=== PATIENT | male | born 1955 | race Caucasian/White ===

== ENCOUNTER 2023-12-05 08:30 | Inpatient (IN) | payer MEDICARE, MEDICAID ==
[~2023-12-05] VITALS: Ht 180.3 cm; Wt 92.5 kg
[~2023-12-05 08:30] MED LIST: LEVO-65 MT
[2023-12-05] MEDS ORDERED: LASIX (08:32)
[2023-12-05] MEDS ORDERED: ATORVASTATIN (08:32)
[2023-12-05] MEDS ORDERED: ACETAMINOPHEN (08:32)
[2023-12-05] MEDS ORDERED: COLACE (08:32)
[2023-12-05] MEDS ORDERED: LISINOPRIL (08:32)
[2023-12-05 09:52] LABS: BASOPHILS % 0.9 % (0.0-2.0); EOSINOPHILS % 3.7 % (0.0-5.0); HEMATOCRIT. 41.7 % (42.0-52.0); HEMOGLOBIN. 13.1 g/dL (14.0-18.0); LYMPHOCYTES % 16.7 % (20.0-50.0); MEAN CORPUSCULAR HEMOGLOBIN 29.5 pg (28.0-32.0); MEAN CORPUSCULAR HGB CONC 31.5 g/dL (31.0-37.0); MEAN CORPUSCULAR VOLUME 93.5 fL (80.0-94.0); MEAN PLATELET VOLUME 9.6 fl (7.4-10.4); MONOCYTES % 7.7 % (2.0-8.0); PLATELET 201 x1000/uL (130-400); RED BLOOD CELL COUNT 4.46 mill/uL (4.7-6.1); RED CELL DISTRIBUTION WIDTH 17.1 % (11.6-14.6); WHITE BLOOD COUNT 6.6 x1000/uL (4.5-11.0)
[2023-12-05 10:16] LABS: INR 1.1; PROTHROMBIN TIME 11.9 sec (9.6-11.0)
[2023-12-05 11:07] LABS: ALANINE AMINOTRANSFERASE 66 IU/L (10-49); ALBUMIN 4.3 g/dL (3.2-4.8); ASPARTATE AMINOTRANSFERASE 46 IU/L (<34); BILIRUBIN TOTAL 0.8 mg/dL (0.1-1.0); CALCIUM 9.2 mg/dL (8.7-10.4); CARBON DIOXIDE 23 mEq/L (21-32); CHLORIDE 109 mEq/L (98-107); CREATININE 0.8 mg/dL (0.6-1.3); GLUCOSE 90 mg/dL (70-105); POTASSIUM 4.2 mEq/L (3.5-5.1); PROTEIN TOTAL 6.8 g/dL (6.0-8.3); SODIUM 141 mEq/L (136-145); TROPONIN I HIGH SENSITIVITY 27 ng/L (3.0-53); UREA NITROGEN BLOOD 16 mg/dL (9-23)
[2023-12-05 12:16] LABS: CLARITY URINE CLEAR (CLEAR); COLOR URINE DARK YELLOW (YELLOW); GLUCOSE URINE NEGATIVE (NEGATIVE); KETONES URINE NEGATIVE (NEGATIVE); LEUKOCYTE ESTERASE URINE NEGATIVE (NEGATIVE); NITRITE URINE NEGATIVE (NEGATIVE); OCCULT BLOOD URINE NEGATIVE (NEGATIVE); PH URINE 5.5 (4.5-8.0); PROTEIN URINE 2+ (NEGATIVE); SPECIFIC GRAVITY URINE 1.024 (1.005-1.030)
[2023-12-05] MEDS ORDERED: DEXT 5%/0.9% NACL 1,000 ML IV ONE (12:30)
[2023-12-05] MEDS ORDERED: MORPHINE SULFATE 4 MG/ML CPJ (NOT FOR IM USE) IV ONE (12:30)
[2023-12-05 12:44] LABS: SQUAMOUS EPITHELIAL CELL URINE 1+ /lpf (RARE/1+)
[2023-12-05 12:45] LABS: RBC URINE NONE SEEN /hpf (0-2); WBC URINE 0-2 /hpf (0-2)
[2023-12-05 12:46] LABS: BACTERIA URINE TRACE
[2023-12-05 13:18] LABS: TROPONIN I HIGH SENSITIVITY 28 ng/L (3.0-53)
[2023-12-05 16:00] VITALS: BP 138/93; PULSE 74; RESP 18; TEMP 97.8
[2023-12-05 20:00] VITALS: BP 132/101; PULSE 83; RESP 20; TEMP 97.7
[2023-12-05] MEDS: FAMOTIDINE 20MG TABLET PO SCH (21:00)
[2023-12-05] MEDS ORDERED: ENOXAPARIN 40MG/0.4ML SYR SUBCUT SCH (21:00)
[2023-12-05] MEDS: KETOROLAC 15MG/ML VIAL IV PRN (22:12)
[2023-12-05] MEDS ORDERED: ZOLPIDEM TARTRATE 5MG TABLET PO PRN (22:15)
[2023-12-06] VITALS: BP 129/75; PULSE 66; RESP 20; TEMP 98.1
[2023-12-06 04:00] VITALS: BP 126/85; PULSE 75; RESP 20; TEMP 97.5
[2023-12-06 08:00] VITALS: BP 117/79; PULSE 77; RESP 18; TEMP 97.2
[2023-12-06] MEDS ORDERED: FUROSEMIDE 40MG TABLET PO SCH (09:00)
[2023-12-06] MEDS ORDERED: CARVEDILOL 6.25 MG TABLET PO SCH (09:00)
[2023-12-06] MEDS: FAMOTIDINE 20MG TABLET PO SCH (09:09)
[2023-12-06] MEDS: KETOROLAC 15MG/ML VIAL IV PRN (10:45)
[2023-12-06 12:00] VITALS: BP 128/91; PULSE 68; RESP 16; TEMP 98
[2023-12-06] MEDS ORDERED: LOSARTAN 25 MG TABLET PO SCH (13:00)
[2023-12-06 15:16] VITALS: BP 128/91; PULSE 68; TEMP 98; O2SAT 98
== END 2023-12-06 15:30 | disposition home or self-care (01) | DRG 438 ==
LOC: ER 08:30 → 7WST 14:55 → EDBEDREQ 15:02 → EDBEDREQSVC 15:04
PROVIDERS: ADMIT Internal Medicine; ATTEND Internal Medicine
DX: K85.90 Acute pancreatitis without necrosis or infection, unspecified (principal); I50.23 Acute on chronic systolic (congestive) heart failure; E11.9 Type 2 diabetes mellitus without complications; E78.00 Pure hypercholesterolemia, unspecified; I11.0 Hypertensive heart disease with heart failure; Z95.810 Presence of automatic (implantable) cardiac defibrillator; Z79.899 Other long term (current) drug therapy
CPT/HCPCS: 36415; 71045; 74176; 76705; 80053; 81003; 84484; 85025; 93005; 99285; J1650; J1885; J2270; J7042

== ENCOUNTER 2024-02-04 09:19 | Emergency (ER) | payer MEDICARE, MEDICAID ==
[~2024-02-04] VITALS: Ht 177.8 cm; Wt 82.0 kg
[~2024-02-04 09:19] MED LIST changes: +ACETAMINOPHEN; +ATORVASTATIN; +COLACE; +LASIX; +LISINOPRIL
[2024-02-04 09:22] VITALS: TEMP 98.9; O2SAT 100
[2024-02-04] MEDS: FUROSEMIDE 40MG/4ML VIAL IV ONE (10:08)
[2024-02-04 10:20] LABS: BASOPHILS % 0.9 % (0.0-2.0); EOSINOPHILS % 3.5 % (0.0-5.0); HEMATOCRIT. 41.2 % (42.0-52.0); HEMOGLOBIN. 13.2 g/dL (14.0-18.0); LYMPHOCYTES % 12.4 % (20.0-50.0); MEAN CORPUSCULAR HEMOGLOBIN 28.2 pg (28.0-32.0); MEAN CORPUSCULAR HGB CONC 32.1 g/dL (31.0-37.0); MEAN CORPUSCULAR VOLUME 87.7 fL (80.0-94.0); MEAN PLATELET VOLUME 9.8 fl (7.4-10.4); MONOCYTES % 12.6 % (2.0-8.0); NEUTROPHILS % 70.6 % (40.0-76.0); PLATELET 215 x1000/uL (130-400); RED CELL DISTRIBUTION WIDTH 16.8 % (11.6-14.6); WHITE BLOOD COUNT 7.7 x1000/uL (4.5-11.0)
[2024-02-04 10:28] VITALS: RESP 20
[2024-02-04 10:58] LABS: ALANINE AMINOTRANSFERASE 19 IU/L (10-49); ALBUMIN 4.2 g/dL (3.2-4.8); ASPARTATE AMINOTRANSFERASE 44 IU/L (<34); BILIRUBIN TOTAL 0.7 mg/dL (0.1-1.0); CALCIUM 8.6 mg/dL (8.7-10.4); CARBON DIOXIDE 21 mEq/L (21-32); CHLORIDE 110 mEq/L (98-107); CREATININE 1.1 mg/dL (0.6-1.3); GLUCOSE 91 mg/dL (70-105); POTASSIUM 4.9 mEq/L (3.5-5.1); PROTEIN TOTAL 6.7 g/dL (6.0-8.3); SODIUM 140 mEq/L (136-145); TROPONIN I HIGH SENSITIVITY 43 ng/L (3.0-53); UREA NITROGEN BLOOD 26 mg/dL (9-23)
[2024-02-04 11:00] VITALS: BP 156/93; PULSE 78; RESP 24
[2024-02-04] MEDS ORDERED: FURO-151 MT (11:16)
== END 2024-02-04 11:27 | disposition left against medical advice (07) ==
LOC: ER 09:19
DX: I11.0 Hypertensive heart disease with heart failure (principal); I50.9 Heart failure, unspecified; E78.00 Pure hypercholesterolemia, unspecified
CPT/HCPCS: 99291; 96374; 80053; 83880; 85025; 84484; 36415; 71045; 94640; 93005; J1940; 94660

== ENCOUNTER 2024-02-23 03:23 | Emergency (ER) | payer MEDICARE, MEDICAID ==
[~2024-02-23] VITALS: Ht 182.9 cm; Wt 90.0 kg
[~2024-02-23 03:23] MED LIST changes: +FURO-151 MT
[2024-02-23 03:45] VITALS: O2SAT 100
[2024-02-23 04:40] LABS: BASOPHILS % 1.2 % (0.0-2.0); EOSINOPHILS % 0.6 % (0.0-5.0); HEMATOCRIT. 41.3 % (42.0-52.0); HEMOGLOBIN. 13.5 g/dL (14.0-18.0); LYMPHOCYTES % 13.6 % (20.0-50.0); MEAN CORPUSCULAR HEMOGLOBIN 28.2 pg (28.0-32.0); MEAN CORPUSCULAR HGB CONC 32.6 g/dL (31.0-37.0); MEAN CORPUSCULAR VOLUME 86.6 fL (80.0-94.0); MEAN PLATELET VOLUME 9.3 fl (7.4-10.4); MONOCYTES % 14.5 % (2.0-8.0); NEUTROPHILS % 70.1 % (40.0-76.0); PLATELET 311 x1000/uL (130-400); RED BLOOD CELL COUNT 4.77 mill/uL (4.7-6.1); RED CELL DISTRIBUTION WIDTH 17.3 % (11.6-14.6); WHITE BLOOD COUNT 8.1 x1000/uL (4.5-11.0)
[2024-02-23 05:01] LABS: ALANINE AMINOTRANSFERASE 255 IU/L (10-49); ASPARTATE AMINOTRANSFERASE 426 IU/L (<34); BILIRUBIN TOTAL 1.4 mg/dL (0.1-1.0); CALCIUM 9.9 mg/dL (8.7-10.4); CARBON DIOXIDE 20 mEq/L (21-32); CHLORIDE 102 mEq/L (98-107); GLUCOSE 84 mg/dL (70-105); POTASSIUM 4.7 mEq/L (3.5-5.1); SODIUM 135 mEq/L (136-145); UREA NITROGEN BLOOD 44 mg/dL (9-23)
[2024-02-23 05:16] LABS: CREATININE 1.8 mg/dL (0.6-1.3); PROTEIN TOTAL 8.7 g/dL (6.0-8.3)
[2024-02-23 06:07] VITALS: BP 128/98; PULSE 72; RESP 17; TEMP 97.9
== END 2024-02-23 11:24 | disposition left against medical advice (07) ==
LOC: ER 03:29
DX: R10.9 Unspecified abdominal pain (principal); Z53.21 Procedure and treatment not carried out due to patient leaving prior to being seen by health care provider
CPT/HCPCS: 36415; 80053; 85025; 99281

== ENCOUNTER 2024-03-03 15:31 | Emergency (ER) | payer MEDICARE, MEDICAID ==
[~2024-03-03] VITALS: Ht 185.4 cm; Wt 91.0 kg
[2024-03-03 15:35] VITALS: TEMP 97.5; O2SAT 99
[2024-03-03 16:12] LABS: EOSINOPHILS % 1.5 % (0.0-5.0); HEMATOCRIT. 40.9 % (42.0-52.0); HEMOGLOBIN. 13.3 g/dL (14.0-18.0); LYMPHOCYTES % 14.2 % (20.0-50.0); MEAN CORPUSCULAR HEMOGLOBIN 27.9 pg (28.0-32.0); MEAN CORPUSCULAR HGB CONC 32.6 g/dL (31.0-37.0); MEAN CORPUSCULAR VOLUME 85.8 fL (80.0-94.0); MEAN PLATELET VOLUME 8.8 fl (7.4-10.4); MONOCYTES % 7.9 % (2.0-8.0); NEUTROPHILS % 75.4 % (40.0-76.0); PLATELET 307 x1000/uL (130-400); RED BLOOD CELL COUNT 4.77 mill/uL (4.7-6.1); RED CELL DISTRIBUTION WIDTH 17.6 % (11.6-14.6); WHITE BLOOD COUNT 7.3 x1000/uL (4.5-11.0)
[2024-03-03 16:24] LABS: INR 1.2; PROTHROMBIN TIME 13.3 sec (9.6-11.0)
[2024-03-03 16:35] LABS: ALANINE AMINOTRANSFERASE 72 IU/L (10-49); ALBUMIN 4.4 g/dL (3.2-4.8); ASPARTATE AMINOTRANSFERASE 46 IU/L (<34); BILIRUBIN TOTAL 1.1 mg/dL (0.1-1.0); CALCIUM 9.1 mg/dL (8.7-10.4); CARBON DIOXIDE 23 mEq/L (21-32); CHLORIDE 108 mEq/L (98-107); CREATININE 1.4 mg/dL (0.6-1.3); GLUCOSE 95 mg/dL (70-105); POTASSIUM 4.6 mEq/L (3.5-5.1); SODIUM 137 mEq/L (136-145); TROPONIN I HIGH SENSITIVITY 34 ng/L (3.0-53); UREA NITROGEN BLOOD 32 mg/dL (9-23)
[2024-03-03] MEDS: FUROSEMIDE 40MG/4ML VIAL IVP ONE (16:52)
[2024-03-03 19:49] VITALS: BP 106/70; PULSE 68; RESP 14
== END 2024-03-03 21:00 | disposition home or self-care (01) ==
LOC: ER 15:31
DX: I11.0 Hypertensive heart disease with heart failure (principal); I50.9 Heart failure, unspecified; R18.8 Other ascites; E78.00 Pure hypercholesterolemia, unspecified; N17.9 Acute kidney failure, unspecified
CPT/HCPCS: 99285; 74176; 96374; 71045; 80053; 83880; 83605; 83690; 85025; 85610; 85730; 84484; 36415; 93005; J1940

== ENCOUNTER 2024-05-01 18:00 | Inpatient (IN) | payer OTHER, MEDICAID ==
[~2024-05-01] VITALS: Ht 182.9 cm; Wt 87.1 kg
[~2024-05-01 18:00] MED LIST changes: +CARV6.2548 MT; -FURO-151 MT; +FURO80TA87 MT; -LEVO-65 MT; -LISINOPRIL; +LOSA25TA26 MT; +POTA-205 MT
[2024-05-01] MEDS: MORPHINE SULFATE 4 MG/ML INJ (FOR IV/IM USE) IV STA (19:01)
[2024-05-01] MEDS: ONDANSETRON HCL 4MG/2ML INJ IV STA (19:02)
[2024-05-01] MEDS: SODIUM CHLORIDE 0.9% 1,000 ML IV ONE (19:02)
[2024-05-01 19:22] LABS: HEMATOCRIT. 37.9 % (42.0-52.0); HEMOGLOBIN. 12.3 g/dL (14.0-18.0); MEAN CORPUSCULAR HEMOGLOBIN 27.4 pg (28.0-32.0); MEAN CORPUSCULAR HGB CONC 32.4 g/dL (31.0-37.0); MEAN CORPUSCULAR VOLUME 84.5 fL (80.0-94.0); MEAN PLATELET VOLUME 9.7 fl (7.4-10.4); PLATELET 246 x1000/uL (130-400); RED BLOOD CELL COUNT 4.48 mill/uL (4.7-6.1); RED CELL DISTRIBUTION WIDTH 21.2 % (11.6-14.6); WHITE BLOOD COUNT 21.4 x1000/uL (4.5-11.0)
[2024-05-01 19:27] LABS: DIFFERENTIAL COMMENT 1
[2024-05-01 19:34] LABS: CHLORIDE 100 mEq/L (98-107); SODIUM 133 mEq/L (136-145)
[2024-05-01 19:35] LABS: CARBON DIOXIDE 24 mEq/L (21-32)
[2024-05-01 19:36] LABS: CALCIUM 10.1 mg/dL (8.7-10.4)
[2024-05-01 19:41] LABS: CREATININE 1.6 mg/dL (0.6-1.3); GLUCOSE 103 mg/dL (70-105); UREA NITROGEN BLOOD 43 mg/dL (9-23)
[2024-05-01 19:42] LABS: ALANINE AMINOTRANSFERASE 42 IU/L (10-49)
[2024-05-01 19:43] LABS: ALBUMIN 4.5 g/dL (3.2-4.8); ASPARTATE AMINOTRANSFERASE 30 IU/L (<34); BILIRUBIN DIRECT 1.1 mg/dL (<=3.0); BILIRUBIN TOTAL 1.7 mg/dL (0.1-1.0)
[2024-05-01 22:22] LABS: OVALOCYTES 1+; PLATELET ESTIMATE NORMAL; TARGET CELLS 1+; TEAR DROP CELLS 1+
[2024-05-01 22:23] LABS: GIANT PLATELETS FEW
[2024-05-01] MEDS: AZITHROMYCIN 500MG/250ML 250 ML IV SCH (22:30)
[2024-05-01] MEDS: CEFTRIAXONE 1GM/50ML 50 ML IV NR (22:39)
[2024-05-02 01:33] VITALS: BP 112/72; PULSE 81; RESP 20; TEMP 98.8
[2024-05-02] MEDS: MORPHINE SULFATE 2 MG/ML CPJ (NOT FOR IM USE) IV PRN (02:19)
[2024-05-02 04:00] VITALS: BP 122/71; PULSE 101; RESP 16; TEMP 97.5
[2024-05-02] MEDS: PIPERACILLIN/TAZO 3.375G/50ML 50 ML IV SCH (07:15)
[2024-05-02] MEDS: DEXT 5%/0.45% NACL 1000ML 1,000 ML IV SCH (07:15)
[2024-05-02 08:00] VITALS: BP 104/57; PULSE 57; RESP 16; TEMP 97.3
[2024-05-02 08:10] LABS: HEMATOCRIT. 37.9 % (42.0-52.0); HEMOGLOBIN. 12.2 g/dL (14.0-18.0); MEAN CORPUSCULAR HEMOGLOBIN 27.1 pg (28.0-32.0); MEAN CORPUSCULAR HGB CONC 32.1 g/dL (31.0-37.0); MEAN CORPUSCULAR VOLUME 84.4 fL (80.0-94.0); MEAN PLATELET VOLUME 9.6 fl (7.4-10.4); PLATELET 241 x1000/uL (130-400); RED BLOOD CELL COUNT 4.49 mill/uL (4.7-6.1); WHITE BLOOD COUNT 18.7 x1000/uL (4.5-11.0)
[2024-05-02 08:17] LABS: CALCIUM 10.1 mg/dL (8.7-10.4); CHLORIDE 101 mEq/L (98-107); POTASSIUM 3.7 mEq/L (3.5-5.1); SODIUM 134 mEq/L (136-145)
[2024-05-02 08:18] LABS: CARBON DIOXIDE 23 mEq/L (21-32)
[2024-05-02 08:20] LABS: DIFFERENTIAL COMMENT 1
[2024-05-02 08:23] LABS: CREATININE 1.1 mg/dL (0.6-1.3); GLUCOSE 90 mg/dL (70-105); TRIGLYCERIDE 126 mg/dL (0-150); UREA NITROGEN BLOOD 37 mg/dL (9-23)
[2024-05-02 08:24] LABS: CHOLESTEROL 128 mg/dL (<200); LDL CHOLESTEROL 60 mg/dL (5-100)
[2024-05-02 08:25] LABS: HDL CHOLESTEROL 32 mg/dL (>55)
[2024-05-02] MEDS: PANTOPRAZOLE SODIUM 40 MG/VIAL IV SCH (08:27)
[2024-05-02] MEDS: HEPARIN 5000 UNITS/ML VIAL SUBCUT SCH (08:28)
[2024-05-02 08:48] LABS: HEPATITIS B SURFACE ANTIGEN NEGATIVE (Negative)
[2024-05-02 09:09] LABS: HEPATITIS C AB NON REACTIVE (Neg) (Negative)
[2024-05-02] MEDS ORDERED: NALOXONE HCL 0.4MG/ML VIAL IV PRN (10:30)
[2024-05-02 12:00] VITALS: BP 116/74; PULSE 70; RESP 20; TEMP 96.6
[2024-05-02] MEDS ORDERED: SODIUM CHLORIDE 0.9% 1,000 ML IV SCH (14:00)
[2024-05-02 15:20] LABS: ANISOCYTOSIS 2+; PLATELET ESTIMATE NORMAL
[2024-05-02 16:00] VITALS: BP 112/67; PULSE 83; RESP 18; TEMP 97.9
[2024-05-02 16:35] LABS: INR 1.1; PROTHROMBIN TIME 12.2 sec (9.6-11.0)
[2024-05-02 16:45] LABS: ALANINE AMINOTRANSFERASE 31 IU/L (10-49); ALBUMIN 4.1 g/dL (3.2-4.8); ASPARTATE AMINOTRANSFERASE 22 IU/L (<34); BILIRUBIN DIRECT 1.1 mg/dL (<=3.0); BILIRUBIN TOTAL 1.8 mg/dL (0.1-1.0); PROTEIN TOTAL 6.8 g/dL (6.0-8.3)
[2024-05-02 17:47] LABS: CLARITY URINE CLEAR (CLEAR); COLOR URINE DARK YELLOW (YELLOW); GLUCOSE URINE NEGATIVE (NEGATIVE); KETONES URINE NEGATIVE (NEGATIVE); LEUKOCYTE ESTERASE URINE NEGATIVE (NEGATIVE); NITRITE URINE NEGATIVE (NEGATIVE); OCCULT BLOOD URINE TRACE (NEGATIVE); PH URINE 5.5 (4.5-8.0); PROTEIN URINE 2+ (NEGATIVE)
[2024-05-02 18:14] LABS: BACTERIA URINE NONE SEEN; RBC URINE 0-2 /hpf (0-2); SQUAMOUS EPITHELIAL CELL URINE RARE /lpf (RARE/1+); WBC URINE NONE SEEN /hpf (0-2)
[2024-05-02 22:00] VITALS: BP 123/63; PULSE 118; RESP 19; TEMP 98.5
[2024-05-03] VITALS: BP 131/75; PULSE 80; RESP 17; TEMP 98.1
[2024-05-03 06:17] LABS: CHLORIDE 102 mEq/L (98-107); POTASSIUM 3.6 mEq/L (3.5-5.1); SODIUM 134 mEq/L (136-145)
[2024-05-03 06:18] LABS: CALCIUM 9.7 mg/dL (8.7-10.4); CARBON DIOXIDE 25 mEq/L (21-32)
[2024-05-03 06:22] LABS: HEMATOCRIT. 35.2 % (42.0-52.0); HEMOGLOBIN. 11.4 g/dL (14.0-18.0); MEAN CORPUSCULAR HEMOGLOBIN 27.2 pg (28.0-32.0); MEAN CORPUSCULAR HGB CONC 32.3 g/dL (31.0-37.0); MEAN CORPUSCULAR VOLUME 84.2 fL (80.0-94.0); MEAN PLATELET VOLUME 9.7 fl (7.4-10.4); PLATELET 222 x1000/uL (130-400); RED BLOOD CELL COUNT 4.18 mill/uL (4.7-6.1); WHITE BLOOD COUNT 14.7 x1000/uL (4.5-11.0)
[2024-05-03 06:23] LABS: CREATININE 0.8 mg/dL (0.6-1.3); GLUCOSE 84 mg/dL (70-105); UREA NITROGEN BLOOD 22 mg/dL (9-23)
[2024-05-03 06:24] LABS: ALANINE AMINOTRANSFERASE 29 IU/L (10-49); ALBUMIN 3.9 g/dL (3.2-4.8); ASPARTATE AMINOTRANSFERASE 22 IU/L (<34)
[2024-05-03 06:25] LABS: BILIRUBIN TOTAL 1.6 mg/dL (0.1-1.0); PROTEIN TOTAL 6.3 g/dL (6.0-8.3)
[2024-05-03 06:36] LABS: DIFFERENTIAL COMMENT 1
[2024-05-03 08:00] VITALS: BP 99/59; PULSE 79; RESP 18; TEMP 97.7
[2024-05-03 10:32] LABS: ANISOCYTOSIS 2+; PLATELET ESTIMATE NORMAL
[2024-05-03 12:00] VITALS: BP 116/76; PULSE 64; RESP 19; TEMP 98.1
[2024-05-03 16:00] VITALS: BP 118/58; PULSE 78; RESP 19; TEMP 98.4
[2024-05-03 20:00] VITALS: BP 154/78; PULSE 78; RESP 20; TEMP 98.2
[2024-05-03] MEDS: DOXYCYCLINE HYCLATE 100MG CAPSULE PO SCH (20:45)
[2024-05-04] VITALS: BP 149/70; PULSE 51; RESP 20; TEMP 98.3
[2024-05-04 04:00] VITALS: BP 133/104; PULSE 91; RESP 19; TEMP 98.9
[2024-05-04 05:33] LABS: HEMATOCRIT. 37.1 % (42.0-52.0); HEMOGLOBIN. 11.9 g/dL (14.0-18.0); MEAN CORPUSCULAR HGB CONC 32.1 g/dL (31.0-37.0); MEAN PLATELET VOLUME 9.6 fl (7.4-10.4); PLATELET 229 x1000/uL (130-400); RED BLOOD CELL COUNT 4.42 mill/uL (4.7-6.1); RED CELL DISTRIBUTION WIDTH 20.9 % (11.6-14.6); WHITE BLOOD COUNT 10.6 x1000/uL (4.5-11.0)
[2024-05-04 05:38] LABS: CARBON DIOXIDE 23 mEq/L (21-32); CHLORIDE 103 mEq/L (98-107); POTASSIUM 4.1 mEq/L (3.5-5.1); SODIUM 135 mEq/L (136-145)
[2024-05-04 05:39] LABS: CALCIUM 9.3 mg/dL (8.7-10.4)
[2024-05-04 05:44] LABS: CREATININE 0.8 mg/dL (0.6-1.3); GLUCOSE 97 mg/dL (70-105); UREA NITROGEN BLOOD 18 mg/dL (9-23)
[2024-05-04] MEDS: GUAIFENESIN 200MG 200 MG TABLET PO PRN (06:18)
[2024-05-04 06:38] LABS: DIFFERENTIAL COMMENT 1
[2024-05-04 08:00] VITALS: BP 110/70; PULSE 81; RESP 18; TEMP 97.6
[2024-05-04 11:51] LABS: ANISOCYTOSIS 2+; PLATELET ESTIMATE NORMAL
[2024-05-04 12:00] VITALS: BP 117/80; RESP 18; TEMP 96.1
[2024-05-04 16:00] VITALS: BP 128/84; PULSE 80; RESP 18; TEMP 97.7
[2024-05-04] MEDS: FUROSEMIDE 40MG/4ML VIAL IVP NR (18:46)
[2024-05-04 20:00] VITALS: BP 155/121; PULSE 98; RESP 21; TEMP 98.1
[2024-05-04] MEDS: LORAZEPAM 2MG/ML INJ IV PRN (21:28)
[2024-05-04] MEDS: TEMAZEPAM 15MG CAPSULE PO PRN (21:29)
[2024-05-05] VITALS (7 sets, daily range): BP systolic 110–126; BP diastolic 58–78; PULSE 82–89; RESP 18–19; TEMP 96.6–98.1; O2SAT 97
[2024-05-05] MEDS ORDERED: AMOX1TAB16 PO (14:24)
[2024-05-06] VITALS: BP 128/75; PULSE 71; RESP 18; TEMP 97.9
[2024-05-06 04:00] VITALS: BP 142/70; PULSE 78; RESP 18; TEMP 97.9
[2024-05-06 08:00] VITALS: BP 110/64; PULSE 91; RESP 19; TEMP 97.4
[2024-05-06] MEDS: FAMOTIDINE 20MG/2ML VIAL IV SCH (10:35)
[2024-05-06 12:00] VITALS: BP 130/79; PULSE 91; RESP 19; TEMP 97.5
[2024-05-06 16:00] VITALS: BP 126/75; PULSE 87; RESP 19; TEMP 97.7
== END 2024-05-06 18:40 | disposition home or self-care (01) | DRG 871 ==
LOC: ER 18:00 → 6EST 21:40 → EDBEDREQTM 22:01 → EDBEDREQ 22:01 → 8WST 05-02 10:11
PROVIDERS: ADMIT Internal Medicine; ATTEND Internal Medicine
DX: A41.9 Sepsis, unspecified organism (principal); J18.9 Pneumonia, unspecified organism; E87.1 Hypo-osmolality and hyponatremia; I42.9 Cardiomyopathy, unspecified; N17.9 Acute kidney failure, unspecified; I50.22 Chronic systolic (congestive) heart failure; D64.9 Anemia, unspecified; Z96.642 Presence of left artificial hip joint; N28.1 Cyst of kidney, acquired; E80.6 Other disorders of bilirubin metabolism; E78.00 Pure hypercholesterolemia, unspecified; I11.0 Hypertensive heart disease with heart failure; Z95.810 Presence of automatic (implantable) cardiac defibrillator
CPT/HCPCS: 36415; 71045; 74176; 80048; 80053; 80061; 80076; 81003; 83605; 84145; 85025; 86705; 87340; 93005; 93970; 97162; 99291; C9113; J0456; J0696; J1644; J1940; J2060; J2270; J2405; J2543; J3490; J7030